=== PATIENT | female | born 1960 | race Hispanic/Latino ===

== ENCOUNTER 2017-12-02 19:41 | Emergency (ER) | payer OTHER ==
[~2017-12-02] VITALS: Ht 170.2 cm; Wt 107.0 kg
[2017-12-02 19:53] VITALS: BP 121/75
--- NOTE | 2017-12-02 20:29 | RADIOLOGY REPORT ---
EXAMINATION: CHEST 2 VIEWS CLINICAL INFORMATION: Cough, fever. COMPARISON: None. TECHNIQUE: PA and lateral views of the chest were obtained. FINDINGS: The cardiac silhouette is not enlarged. The mediastinal and hilar contours are unremarkable. There are neither pleural effusions nor pneumothoraces. There are no consolidations. The osseous structures are unremarkable. IMPRESSION: No evidence for acute disease.
--- NOTE | 2017-12-02 20:43 | ED INFLUENZA/URI COMPLAINT ---
History of Present Illness General Chief Complaint: General Adult Stated Complaint: MULTIPLE COMPLAINTS Source: patient, family, old records Exam Limitations: no limitations Vital Signs & Intake/Output Vital Signs & Intake/Output Vital Signs Date Time Temp Pulse Resp B/P B/P Pulse O2 O2 Flow FiO2 Mean Ox Delivery Rate 12/02 2113 96 12/02 1952 98.8 76 18 121/75 97 Room Air Allergies Coded Allergies: No Known Allergies (12/02/17) Reconcile Medications Albuterol Sulfate (Proair Hfa) 90 MCG HFA.AER.AD 2 PUF INH Q4-6 PRN PRN bronchitis Cholecalciferol (Vitamin D3) (Vitamin D) 2,000 UNIT CAPSULE 1 CAP PO DAILY SUPPLEMENT (Reported) Codeine Phosphate/Guaifenesi (Cheratussin AC Syrup) 10 MG-100 MG/5 ML LIQUID 5 -10 ML PO Q4-6H PRN cough Ibuprofen 600 MG TABLET 1 TAB PO Q6PRN PRN pain with food Lisinopril 20 MG TABLET 1 TAB PO DAILY BP (Reported) Oseltamivir Phosphate (Tamiflu) 75 MG CAPSULE 1 CAP PO BID influenza Oxymetazoline HCl (Afrin) 0.05 % SPRAY 2 SPRAY NASB BID sinusitis Pantoprazole Sodium 40 MG TABLET.DR 1 TAB PO DAILY GI (Reported) Triage Note: PT TO ER C/C FEVERS, PRODUCTIVE COUGH, AND CHEST CONGESTION X 3 DAYS. T-MAX AT HOME 102. TOOK TYLENOL AT 1600, TEMP NOW 98.8. FLU SWAB SENT FROM [facility] Triage Nurses Notes Reviewed? yes Onset: 2-3 days Duration: day(s):, constant, continues in ED Timing: recent history Severity: moderate Prior Episodes/Possible Cause: illness exposure No Modifying Factors: none Associated Symptoms: chest pain, cough, fever/chills, muscle aches, nasal congestion, nasal drainage, sore throat LMP (ages 10-50): post menopausal : No Patient currently breastfeeds: No HPI: 2 to 3 days prior to admission patient complains of productive cough nasal congestion fever chills myalgia anorexia chest tightness with cough. She denies nausea vomiting diarrhea abdominal pain shortness of breath dysuria rash bleeding. Past History Travel History Traveled to [place] past 21 day No Medical History Any Pertinent Medical History? see below for history Cardiovascular: hypertension Endocrine: diabetes Surgical History Surgical History: non-contributory Psychosocial History What is your primary language Maori Tobacco Use: Never used Family History Hx Contributory? No Review of Systems Review of Systems Constitutional: Reports: see HPI, chills, malaise. EENTM: Reports: see HPI, nasal congestion, throat pain. Respiratory: Reports: see HPI, cough, sputum production. Cardiovascular: Reports: see HPI, chest pain. GI: Reports: no symptoms. Genitourinary: Reports: no symptoms. Musculoskeletal: Reports: see HPI, muscle pain. Skin: Reports: no symptoms. Neurological/Psychological: Reports: no symptoms. Hematologic/Endocrine: Reports: no symptoms. Immunologic/Allergic: Reports: no symptoms. All Other Systems: Reviewed and Negative Physical Exam Physical Exam General Appearance: well developed/nourished, alert, awake, anxious, mild distress, obese Head: atraumatic, normal appearance, tenderness (Frontal maxillary) Eyes: Bilateral: normal appearance, PERRL, EOMI. Ears, Nose, Throat: normal ENT inspection, moist mucous membrane, pharyngeal erythema Neck: normal inspection, supple, full range of motion, trachea midline, lymphadenopathy (R), lymphadenopathy (L) Respiratory: chest non-tender, no respiratory distress, quiet respiration, lungs clear, decreased breath sounds Cardiovascular: regular rate/rhythm, normal peripheral pulses, norml femoral pulses equa Peripheral Pulses: 4+ carotid (R), 4+ carotid (L) Gastrointestinal: normal bowel sounds, soft, non-tender, no organomegaly Back: normal inspection, normal range of motion Extremities: normal inspection, normal capillary refill, normal range of motion, no edema Neurologic/Psych: no motor/sensory deficits, awake, alert, oriented x 3, normal gait, normal mood/affect, comptometrist II-XII nml as tested Reflexes: 2+: bicep (R), bicep (L). Skin: intact, normal color, warm/dry Lymphatic: adenopathy Core Measures Sepsis Present: No Sepsis Focused Exam Completed? No Progress Differential Diagnosis: influenza, pneumonia, pharyngitis, sinusitis Plan of Care: Orders Procedure Date/time Status RAPID VIRAL INFLUENZA A 12/02 1953 Complete Microbiology 12/02 1956 NASOPHARYN: Influenza Virus A & B Rapid Smear - COMP Diagnostic Imaging: Viewed by Me: Radiology Read. Discussed w/RAD: Radiology Read. CXR Impression: no acute abnormality, No evidence for acute disease. Initial ED EKG: none Departure Departure Time of Disposition: 2210 Disposition: HOME OR SELF CARE Condition: Stable Clinical Impression Primary Impression: Influenza Secondary Impressions: Bronchitis, Sinusitis Referrals: Chele Jesus MD (PCP/Family) Departure Forms: Customer Survey General Discharge Information Prescriptions: Current Visit Scripts Oseltamivir Phosphate (Tamiflu) 1 CAP PO BID #10 CAP Albuterol Sulfate (Proair Hfa) 2 PUF INH Q4-6 PRN PRN bronchitis #1 INHAL Codeine Phosphate/Guaifenesi (Cheratussin AC Syrup) 5-10 ML PO Q4-6H PRN cough #240 ML Oxymetazoline HCl (Afrin) 2 SPRAY NASB BID #30 ML Ibuprofen 1 TAB PO Q6PRN PRN pain #50 TAB with food
[2017-12-02] MEDS ORDERED: PANTOPRAZOLE SO40 M1 PO (20:45)
[2017-12-02] MEDS ORDERED: LISINOPRIL20 M1 PO (20:45)
[2017-12-02] MEDS ORDERED: VITAMIN D2000 UNIT PO (20:46)
[2017-12-02] MEDS ORDERED: AFRIN30 ML NASB (22:12)
[2017-12-02] MEDS ORDERED: PROAIR HFA8.5 GM INH (22:12)
[2017-12-02] MEDS ORDERED: TAMIFLU75 M1 PO (22:12)
[2017-12-02] MEDS ORDERED: IBUPROFEN600 M1 PO (22:12)
[2017-12-02] MEDS ORDERED: CHERATUSSIN AC118 M1 PO (22:12)
== END 2017-12-02 22:26 ==
LOC: ERH 19:41
DX: J11.1 Influenza due to unidentified influenza virus with other respiratory manifestations (principal); J40 Bronchitis, not specified as acute or chronic; J32.9 Chronic sinusitis, unspecified; F17.210 Nicotine dependence, cigarettes, uncomplicated
CPT/HCPCS: 1263; 71046; 87804; 87804-59

== ENCOUNTER 2018-03-23 12:52 | Observation (INO) | payer OTHER ==
[~2018-03-23] VITALS: Ht 170.2 cm; Wt 106.6 kg
[~2018-03-23 12:52] MED LIST: AFRIN30 ML NASB; CHERATUSSIN AC118 M1 PO; IBUPROFEN600 M1 PO; LISINOPRIL20 M1 PO; PANTOPRAZOLE SO40 M1 PO; PROAIR HFA8.5 GM INH; TAMIFLU75 M1 PO; VITAMIN D2000 UNIT PO
[2018-03-23 13:32] LABS: ABSOLUTE BASOPHIL COUNT 0 /CUMM (0.0-0.2); ABSOLUTE EOSINOPHIL COUNT 0.1 /CUMM (0.0-0.7); ABSOLUTE LYMPH COUNT 2.2 /CUMM (1.2-3.4); ABSOLUTE MONOCYTE COUNT 0.4 /CUMM (0.10-0.60); MEAN PLATELET VOLUME 8.3 FL (7.4-10.4)
[2018-03-23 13:40] LABS: BASOPHIL % 0.4 % (0.0-2.0); EOSINOPHIL % 1.7 % (0-5); GRANULOCYTE % 59.2 % (42.2-75.2); HEMATOCRIT 41.8 % (37-47); MEAN CORPUSCULAR HGB 29.6 PG (27.0-31.0); MEAN CORPUSCULAR HGB CONC 33.3 G/DL (33.0-37.0); MEAN CORPUSCULAR VOLUME 88.9 FL (81.0-99.0); PLATELET COUNT 295 /CUMM (130-400); RBC DISTRIBUTION WIDTH 12.7 % (11.5-14.5); WHITE BLOOD CELL COUNT 6.8 /CUMM (4.8-10.8)
--- NOTE | 2018-03-23 13:43 | ED CARDIAC/CP/PALPITATIONS ---
History of Present Illness General Chief Complaint: Chest Pain Stated Complaint: CHEST PAIN Source: patient Exam Limitations: language barrier Vital Signs & Intake/Output Vital Signs & Intake/Output Vital Signs Date Time Temp Pulse Resp B/P B/P Pulse O2 O2 Flow FiO2 Mean Ox Delivery Rate 03/23 1623 97.1 52 18 122/84 97 Room Air 03/23 1433 50 18 110/60 99 Room Air 03/23 1302 96.2 60 20 142/82 97 Room Air Allergies Coded Allergies: No Known Allergies (12/02/17) Triage Note: PT TO ED C/O HIGH BP AT HOME THIS AM. STATES IT WAS FLUCTUATING UP AND DOWN. C/O H/A, LEFT ARM TINGLING AND SLIGHT C/P. BP 142/82 IN TRIAGE. Triage Nurses Notes Reviewed? yes Onset: Abrupt Duration: hour(s): (930 am) Timing: recent history Activities at Onset: none HPI: 57-year-old female comes into emergency room for further evaluation of left- sided chest pain and tingling down her left arm. She's had some associated shortness of breath. She denies any fever chills or vomiting. She reports that she sees Dr. Snow from cardiology. She has a history of hypertension. Denies any prior HI. Denies any other associated symptoms. (Caleb Mcclain) Reconcile Medications Aspirin (Aspirin*) 81 MG TAB.CHEW 81 MG PO DAILY Heart health . Lisinopril 20 MG TABLET 1 TAB PO DAILY BP (Reported) Omeprazole 20 MG CAPSULE.DR 1 CAP PO DAILY GERD . (Becki MAYBERRY,Gopi Hameed) Past History Travel History Traveled to [place] past 21 day No Medical History Any Pertinent Medical History? see below for history Cardiovascular: hypertension Endocrine: diabetes Surgical History Surgical History: non-contributory Psychosocial History What is your primary language Lao Tobacco Use: Never used ETOH Use: denies use Illicit Drug Use: denies illicit drug use Family History Hx Contributory? No (Caleb Mcclain) Review of Systems Review of Systems Constitutional: Reports: no symptoms. EENTM: Reports: no symptoms. Respiratory: Reports: see HPI. Cardiovascular: Reports: see HPI. GI: Reports: no symptoms. Genitourinary: Reports: no symptoms. Musculoskeletal: Reports: see HPI. Skin: Reports: no symptoms. Neurological/Psychological: Reports: no symptoms. Hematologic/Endocrine: Reports: no symptoms. Immunologic/Allergic: Reports: no symptoms. All Other Systems: Reviewed and Negative (Caleb Mcclain) Physical Exam Physical Exam General Appearance: well developed/nourished, alert, awake Head: atraumatic Eyes: Bilateral: normal appearance. Ears, Nose, Throat: normal ENT inspection, hearing grossly normal Neck: normal inspection Respiratory: normal breath sounds, no respiratory distress Cardiovascular: regular rate/rhythm Gastrointestinal: soft Back: normal inspection Extremities: normal inspection, normal capillary refill, no edema Neurologic/Psych: awake, alert, oriented x 3 Skin: intact, normal color Core Measures ACS in differential dx? Yes CVA/TIA Diagnosis No Sepsis Present: No Sepsis Focused Exam Completed? No (Caleb Mcclain) Progress Differential Diagnosis: aortic dissection, costochondritis, musculoskeletal pain , myocarditis, pancreatitis, pericarditis, pneumonia, pneumothorax, pulmonary embolism, PUD/GERD, rib fracture, unstable angina Plan of Care: Orders Procedure Date/time Status Heart Healthy Diet 03/[address] in observation 03/23 1713 Active TROPONIN LEVEL 03/23 1630 Complete EKG 03/23 1630 Active Add-on Test (ER Only) 03/23 1343 Active Telemetry/Playground Equipment Erector 03/23 1343 Active D-DIMER 03/23 1326 Complete TROPONIN LEVEL 03/23 1300 Complete COMPREHENSIVE METABOLIC PANEL 03/23 1300 Complete CBC WITHOUT DIFFERENTIAL 03/23 1300 Complete EKG 03/23 1253 Active Laboratory Tests 03/23/18 1641: Troponin I < 0.01 03/23/18 1326: Anion Gap 12, Estimated GFR > 60, BUN/Creatinine Ratio 18.3, Glucose 92, Calcium 9.9, Total Bilirubin 0.7, AST 23, ALT 39, Alkaline Phosphatase 88, Troponin I < 0.01, Total Protein 7.4, Albumin 4.2, Globulin 3.2, Albumin/Globulin Ratio 1.3, D-Dimer High Sensitivty < 200, CBC w Diff NO MAN DIFF REQ, RBC 4.70, MCV 88.9, MCH 29.6, MCHC 33.3, RDW 12.7, MPV 8.3, Gran % 59.2, Lymphocytes % 32.5, Monocytes % 6.2, Eosinophils % 1.7, Basophils % 0.4, Absolute Granulocytes 4.0, Absolute Lymphocytes 2.2, Absolute Monocytes 0.4, Absolute Eosinophils 0.1, Absolute Basophils 0 Diagnostic Imaging: Viewed by Me: Radiology Read. Discussed w/RAD: Radiology Read. Radiology Impression: PATIENT: EMELY CONTRERAS PRESENT AGE: 57 PATIENT ACCOUNT NO: [id number] : 60 LOCATION: [facility] ORDERING PHYSICIAN: Caleb BRADLEY SERVICE DATE: 03/23/18 EXAM TYPE : RAD - XRY-PORTABLE CHEST XRAY EXAMINATION: XR PORTABLE CHEST CLINICAL INFORMATION: Chest pain. COMPARISON: Chest x-ray 12/02/2017. TECHNIQUE: Portable frontal view of the chest was obtained. FINDINGS: The cardiomediastinal silhouette is within normal limits. The lungs are well expanded and clear. No consolidation or effusion. No pneumothorax. IMPRESSION: No acute findings. Stable chest x-ray compared to 12/02/2017. DICTATED BY: Michael Sanabria MD DATE/ TIME DICTATED:03/23/181438 ORNAMENT STAPLER:SUSANNAH DATE/TIME TRANSCRIBED: 03/23/181438 CONFIDENTIAL, DO NOT COPY WITHOUT APPROPRIATE AUTHORIZATION. < Electronically signed in Other Vendor System> SIGNED BY: Michael Sanabria MD 03/23/18 1444 Initial ED EKG: normal sinus rhythm, rate (50) (Caleb Mcclain) Departure Departure Disposition: STILL A PATIENT Condition: Stable Clinical Impression Primary Impression: Chest pain with moderate risk for cardiac etiology Referrals: Chele Jesus MD (PCP/Family) Departure Forms: Customer Survey General Discharge Information Observation Note Spoke With: Eddie Wang MD Physician Advisor Notified: ROSMERY MAYBERRY,WAYLON [address] Patient In: Non-ED OBS Care Area Rationale for Observation: My rational for observation is as follows . Cardiac telemetry. Serial troponins. Serial EKGs. Chest pain improved after supplemental nitroglycerin. Cardiology consultation. Concern for angina. (Caleb Mcclain) Departure Prescriptions: Current Visit Scripts Omeprazole 1 CAP PO DAILY #30 CAP . Aspirin (Aspirin*) 81 MG PO DAILY #30 TAB . PA/CLOTH LAYER Co-Sign Statement Statement: ED Attending supervision documentation- [] I saw and evaluated the patient. I have also reviewed all the pertinent lab results and diagnostic results. I agree with the findings and the plan of care as documented in the PA's/CLOTH LAYER's documentation. [] I have reviewed the ED Record and agree with the PA's/CLOTH LAYER's documentation. [] Additions or exceptions (if any) to the PAs/CLOTH LAYER's note and plan are summarized below: [] (Becki MAYBERRY,Gopi Hameed) Critical Care Note Critical Care Note Critical Care Time: non-applicable (Parrish BRADLEY,Caleb)
--- NOTE | 2018-03-23 14:44 | RADIOLOGY REPORT ---
EXAMINATION: XR PORTABLE CHEST CLINICAL INFORMATION: Chest pain. COMPARISON: Chest x-ray 12/02/2017. TECHNIQUE: Portable frontal view of the chest was obtained. FINDINGS: The cardiomediastinal silhouette is within normal limits. The lungs are well expanded and clear. No consolidation or effusion. No pneumothorax. IMPRESSION: No acute findings. Stable chest x-ray compared to 12/02/2017.
--- NOTE | 2018-03-23 17:50 | History & Physical ---
Jonathan Soto MD 03/23/18 8219: General Information and HPI MD Statement: I have seen and personally examined EMELY FLOWERS and documented this H&P. The patient is a 57 year old F who presented with a patient stated chief complaint of [chest pain]. Source of Information: patient, family Exam Limitations: no limitations History of Present Illness: Patient is a 57-year-old female with a PMH significant only for hypertension who presents to the [facility] ED complaining of chest pain. She describes chest pain as a pressure-like pain 06/08 that started this morning walking breakfast at approximately 9:30 AM. She was not exerting herself at the time, the pain is located in the left side of the chest just lateral to the sternum and radiated to the left side of the neck. The pain did not resolve until she presented to the ED and received nitroglycerin and a full dose aspirin. She had associated dyspnea, palpitations, diaphoresis, lightheadedness , and left arm tingling. She has a BP machine at home and checked her blood pressure at that time and it was in the 160s/90s. At the time of interview patient's symptoms had completely resolved and she had no complaints. Review of systems she reports that over the last several days she has had generalized malaise with intermittent dizziness. She also reports that she has difficulty sleeping and sometimes wakes up gasping for breath snores loudly, she is following up with Dr. Ma for questionable JONEL. Patient also follows with Dr. Snow for her hypertension, per the patient she had a recent stress test done which was normal. Allergies/Medications Allergies: Coded Allergies: No Known Allergies (12/02/17) Home Med list Aspirin (Aspirin*) 81 MG TAB.CHEW 81 MG PO DAILY Heart health . Lisinopril 20 MG TABLET 1 TAB PO DAILY BP (Reported) Omeprazole 20 MG CAPSULE. 1 CAP PO DAILY GERD . Past History Travel History Traveled to [place] past 21 day No Medical History Cardiovascular: hypertension Surgical History Surgical History: appendectomy, hysterectomy Past Family/Social History Family History Relations & Conditions if any Relation not specified for: FH: HTN (hypertension) Psychosocial History Where do you live? Home Who Do You Live With? child Services at Home: None Primary Language: Azerbaijani Smoking Status: Never Smoked ETOH Use: denies use Illicit Drug Use: denies illicit drug use Living Will? yes Review of Systems Review of Systems Constitutional: Reports: diaphoresis, malaise. Denies: chills, fever. EENTM: Reports: no symptoms. Cardiovascular: Reports: chest pain, palpitations. Denies: peripheral edema, syncope. Respiratory: Denies: cough, short of breath. GI: Reports: no symptoms. Genitourinary: Reports: no symptoms. Musculoskeletal: Reports: no symptoms. Skin: Reports: no symptoms. Neurological/Psychological: Reports: tingling (L arm). Hematologic/Endocrine: Reports: no symptoms. Exam & Diagnostic Data Last 24 Hrs of Vital Signs/I&O Vital Signs Date Time Temp Pulse Resp B/P B/P Pulse O2 O2 Flow FiO2 Mean Ox Delivery Rate 03/23 1623 97.1 52 18 122/84 97 Room Air 03/23 1433 50 18 110/60 99 Room Air 03/23 1302 96.2 60 20 142/82 97 Room Air Intake & Output 03/23 1600 03/23 0800 03/23 0000 Intake Total 0 Output Total Balance 0 Intake, Oral 0 Patient 228 lb Weight Weight Estimated Measurement Method Physical Exam General Appearance Alert, Oriented X3, Cooperative, No Acute Distress Skin Temp/Moisture Exam: Warm/Dry Neck No JVD, hepatojugular reflux Cardiovascular Regular Rate, Normal S1, Normal S2, No Murmurs Lungs Clear to Auscultation, Normal Air Movement Abdomen Normal Bowel Sounds, Soft, No Tenderness Neurological Normal Speech, Strength at 5/5 X4 Ext, Normal Tone, Sensation Intact, Cranial Nerves 3-12 NL Extremities No Clubbing, No Cyanosis, No Edema Last 24 Hrs of Labs/Ceferino: Laboratory Tests 03/23/18 1641: Troponin I < 0.01 03/23/18 1326: Anion Gap 12, Estimated GFR > 60, BUN/Creatinine Ratio 18.3, Glucose 92, Hemoglobin A1c Pending, Calcium 9.9, Total Bilirubin 0.7, AST 23, ALT 39, Alkaline Phosphatase 88, Troponin I < 0.01, Total Protein 7.4, Albumin 4.2, Globulin 3.2, Albumin/Globulin Ratio 1.3, Triglycerides 105, Cholesterol 192, LDL Cholesterol, Calc 125, HDL Cholesterol 46, Cholesterol/HDL Ratio 4, D-Dimer High Sensitivty < 200, CBC w Diff NO MAN DIFF REQ, RBC 4.70, MCV 88.9, MCH 29.6, MCHC 33.3, RDW 12.7, MPV 8.3, Gran % 59.2, Lymphocytes % 32.5, Monocytes % 6.2, Eosinophils % 1.7, Basophils % 0.4, Absolute Granulocytes 4.0, Absolute Lymphocytes 2.2, Absolute Monocytes 0.4, Absolute Eosinophils 0.1, Absolute Basophils 0 Diagnostic Data EKG Results sinus bradycardia, HR 46, QTc 406, no ST-T changes, but no old ekg for comparison CXR Results no acute cardiopulmonary pathology Assessment/Plan Assessment: Patient is a 57-year-old female with a PMH significant only for hypertension who presents to the [facility] ED complaining of chest pain. In the ED patient received nitroglycerin and aspirin which resolved her symptoms. Her vital signs and lab work evident within normal limits, her EKG showed sinus bradycardia. Problem list #Chest pain rule out ACS #Hypertension Plan -Observe on telemetry -Continuous telemetry monitoring - Repeat troponin and EKG to rule out ACS -Nitroglycerin when necessary for chest pain -Start statin -Continue aspirin -If recurrence of chest pain started IV heparin -Case discussed with patient's dairy farmworker, Dr. Snow. Will follow cardiology recommendations -Continue lisinopril for hypertension Diet: Heart healthy DVT prophylaxis: Subcutaneous heparin, Alps CODE STATUS: Full code As Ranked By This Provider Problem List: 1. Chest pain with moderate risk for cardiac etiology Core Measures/Misc (08/16) Acute Coronary Syndrome ACS Diagnosis: No Congestive Heart Failure Congestive Heart Failure Diagnosis No Cerebrovascular Accident CVA/TIA Diagnosis: No VTE (View Protocol) VTE Risk Factors Age>40 No Mechanical VTE Prophylaxis d/t N/A MechProphylax Ordered No VTE Pharm Prophylaxis d/t NA PharmProphylax ordered Sepsis (View protocol) Sepsis Present: No Kota MAYBERRY,Lisa 03/23/18 2686: Resident Review Statement Other Findings: Ms Flowers is a pleasant 57 year old female with past medical hisory of hypertension and GERD who presented to the ED on 03/27/2018 complaining of feeling dizzy. The patient states that for the last four days prior to admission , she has been feeling off her baseline noting that her BP has been fluctuating up and down. She has a BP machine at home and checks her blood pressure frequently. She states she slept well last evening and woke up at approximately 7.00 am. Shortly thereafter, as she was making breakfast she noted some tingling in her left upper extremity. This radiated up towards her neck. This was accompanied with chest pain/discomfort, rated at a 7/10 in severity and described as dull. Pain radiated up to her neck. She checked her BP which at this time which was fluctuating from 155-160 systolic and 90-95 diastolic. Her daughter insisted that she should come to the ED. Prior to coming in she denied any fever, chills, nausea or vomiting. She did endorse some chest palpitations. At the time of our clinical interaction, she was chest pain free and comfortable. She was accompanies by her three children. Last year she saw Dr Snow for a stress test which the patient reports was inconclusive for any pathology. Patient PCP is Dr Roseanna Jesus Patient Motion Picture Projectionist: Dr Ma ROS: As Above. Exam: T: 96.2, NE 60, RR 20 BP 142/82, Sat 97% on RA. General Appearance: well developed/nourished, alert, awake Head: atraumatic Eyes: Bilateral: normal appearance. PERRL Ears, Nose, Throat: normal ENT inspection, hearing grossly normal Neck: normal inspection Respiratory: normal breath sounds, no respiratory distress Cardiovascular: regular rate/rhythm Gastrointestinal: soft, no tenderness, Back: normal inspection Extremities: normal inspection, normal capillary refill, no edema Neurologic/Psych: awake, alert, oriented x 3 Skin: intact, normal color Labs As Above. Initial two troponins WNL Imaging: SERVICE DATE: 03/23/18 EXAM TYPE: RAD - XRY-PORTABLE CHEST XRAY EXAMINATION: XR PORTABLE CHEST CLINICAL INFORMATION: Chest pain. COMPARISON: Chest x-ray 12/02/2017. TECHNIQUE: Portable frontal view of the chest was obtained. FINDINGS: The cardiomediastinal silhouette is within normal limits. The lungs are well expanded and clear. No consolidation or effusion. No pneumothorax. IMPRESSION: No acute findings. Stable chest x-ray compared to 12/02/2017. DICTATED BY: Michael Sanabria MD A/P Ms Flowers is a pleasant 57 year old female with past medical hisory of hypertension and GERD who presented to the ED on 03/27/2018 complaining of feeling dizzy and experiencing chest discomfort. #Atypical Chest Pain and discomfort, Rule out ACS #Hypertensive Urgency Place in Observation intelemetry One more set of troponins. If patient endorses chest pain, being IV heparin and Nirtoglycerin Obtain formal cardiology consultation. Defer to cardiology regarding echocardiogram HBA1c and Lipid Panel Continue home medications, if pressure continues to be elevated, may consider the addition of aother antihypertensive. The patient has been on a PPI previously, this may help with her symptoms. May also consider beginning Aspirin DVT PPX Lovenox Heart Healthy Full Code Delvin Oconnor 03/23/186: Attending MD Review Statement Attending Statement Attending MD Statement: examined this patient, discuss w/resident/PA/UNIT ASSISTANT, agreed w/resident/PA/UNIT ASSISTANT, discussed with family, reviewed EMR data (avail), reviewed images, amended to note Attending Assessment/Plan: CC: Chest pain PMH: HTN Patient came to ER for left-sided chest pain/pressure that started approximately 9:30 AM when she was preparing breakfast, it was substernal and left parasternal , radiating to left side of the neck, present at rest, associated with shortness of breath, diaphoresis and lightheadedness but not actual syncope, no aggravating or relieving factors. As the pain was not improving her daughter brought her to ER. Her pain improved after sublingual nitroglycerin. No repeat episode of pain in the ER. Patient denies any cough or expectoration, pleuritic nature of the pain, abdominal pain, burning sensation in abdomen or chest, vision problems. Patient gets short of breath after climbing one flight of steps , or walking her dog around but denies any leg swellings, follows up with dairy farmworker regularly, recent stress test 2 months back was normal. Vitals: Afebrile, pulse 60, RR 20, blood pressure 142/82, saturating 96% on room air On exam: A O 3, cooperative, no acute distress, neck supple, JVD normal, no lymphadenopathy, mucosa moist, no focal neurological deficit, no dependent edema , no obvious skin rashes or inflammation CVS: S1-S2, RRR, soft left parasternal systolic murmur. RS: Clear to auscultate bilaterally. Abdomen: Soft, NT, ND, bowel sounds present. CXR: No acute cardiopulmonary process Assessment and plan 57-year-old female with past medical history significant for hypertension presented in ER for chest pain, left-sided, happened at rest, radiating to left side of neck associated with the diaphoresis and lightheadedness with mild shortness of breath. All symptoms resolved after sublingual nitroglycerin. Examination unremarkable except soft left parasternal systolic murmur. ECG is unremarkable except heart rate 60, troponin less than 0.012. Patient would benefit from observation on telemetry to rule out ACS + Atypical chest pain + History of HTN - Place in observation on telemetry - Continuous telemetry monitoring - Serial troponin and EKGs - 2-D echo in a.m. if significant increase in troponin - Cardiology consult in a.m. - Continue aspirin 81 mg daily, - Check lipid profile - Continue home doses of lisinopril
[2018-03-23 19:49] VITALS: BP 148/80
[2018-03-23 22:05] VITALS: BP 138/82
[2018-03-24 06:38] VITALS: BP 132/78
--- NOTE | 2018-03-24 07:28 | PN-Observation ---
Charles MAYBERRY,Jonathan 03/24/18 0728: Observation Note Observation Note _ I have personally examined EMELY CONTRERAS. her disposition is uncertain at this time. Before a determination can be made, she requires continued observation for the following reasons [chest pain]. Assessment/Plan Medical Problem List: 1. Chest pain with moderate risk for cardiac etiology Plan: Patient is a 57-year-old female with a PMH significant only for hypertension who presents to the [facility] ED complaining of chest pain. In the ED patient received nitroglycerin and aspirin which resolved her symptoms. Her vital signs and lab work evident within normal limits, her EKG showed sinus bradycardia. Problem list #Chest pain rule out ACS - lipid panel is within normal limits - continue telemetry monitoring - patient has had asymptomatic bradycardia - serial troponin negative and EKGs without ST-T changes - nitroglycerin PRN - aspirin 81 mg daily - will follow-up cardiology recommendations - anticipate DC home today #Hypertension - continue home lisinopril Diet: Heart healthy DVT prophylaxis: Subcutaneous heparin, Alps CODE STATUS: Full code Subjective Follow-up For: Chest pain, now resolved Tele-Events Since Last Visit: SR HR 40s-50s Subjective: Patient was seen and examined at bedside. She was resting comfortably. She had no acute events overnight. She had no recurrences of her chest pain and feels back to baseline today. She is able to ambulate to the restroom with no shortness breath, or chest pain. She denies any palpitations, nausea, vomiting, fever, chills. Review of Systems Constitutional: Denies: chills, fever. EENTM: Reports: no symptoms. Cardiovascular: Denies: chest pain, palpitations. Respiratory: Denies: short of breath. Gastrointestinal: Reports: no symptoms. Genitourinary: Reports: no symptoms. Musculoskeletal: Reports: no symptoms. Skin: Reports: no symptoms. Objective Last 24 Hrs of Vital Signs/I&O Vital Signs Date Time Temp Pulse Resp B/P B/P Pulse O2 O2 Flow FiO2 Mean Ox Delivery Rate 03/24 0638 98.2 54 20 132/78 94 Room Air 03/23 2205 98.2 56 20 138/82 95 03/23 1949 98.5 55 22 148/80 96 Room Air 03/23 1623 97.1 52 18 122/84 97 Room Air 03/23 1433 50 18 110/60 99 Room Air 03/23 1302 96.2 60 20 142/82 97 Room Air Intake & Output 03/24 0800 03/24 0000 03/23 1600 Intake Total 480 480 0 Output Total Balance 480 480 0 Intake, Oral 480 480 0 Patient 235 lb 228 lb Weight Weight Estimated Measurement Method Physical Exam General Appearance: Alert, Oriented X3, Cooperative, No Acute Distress Sepsis Skin Exam (color): Normal for Ethnicity Cardiovascular: Regular Rate, Normal S1, Normal S2 Lungs: Clear to Auscultation, Normal Air Movement Abdomen: Normal Bowel Sounds, Soft, No Tenderness Neurological: Normal Speech, Normal Tone, Sensation Intact Current Medications: Current Medications Sig/Pattie Start time Last Medication Dose Route Stop Time Status Admin Acetaminophen 1,000 MG Q6P PRN 03/23 2300 AC N/A 1 UNIT IV Acetaminophen 325 MG Q6P PRN 03/23 2030 AC PO Acetaminophen 650 MG ONCE ONE 03/23 2015 DC 03/23 PO 03/23 Aspirin 0 .STK-MED ONE 03/23 1354 DC PO Aspirin 325 MG ONCE ONE 03/23 1345 DC 03/23 PO 03/23 1346 1404 Enoxaparin Sodium 40 MG DAILY 03/23 1813 AC SC Lisinopril 20 MG DAILY 03/24 0900 AC PO Nitroglycerin 0.4 MG Q 5 MINUTES X 3 DO.. 03/23 1930 AC SL Nitroglycerin 0 .STK-MED ONE 03/23 1354 DC SL Nitroglycerin 0.4 MG ONCE ONE 03/23 1345 DC 03/23 SL 03/23 1346 1419 Last 24 Hrs of Labs/Mics: Laboratory Tests 03/23/18 2235: Troponin I < 0.01 03/23/18 1641: Troponin I < 0.01 Tosha MAYBERRY,Amado 03/24/18 1015: Observation Note Observation Note _ Patient seen and examined. Plan of care discussed with the medical team and the patient. Available lab work and radiology test reports were reviewed. Patient is comfortable and her vital signs stable. She continues to have mild the left anterior chest pain. No tenderness noted. Pain does not get exacerbated by moving left shoulder were activities of left pectoralis major. Exam: General: Patient awake alert oriented without any distress CVS: S1 plus S2 without any murmur or gallops Chest: Few scattered crepitation without any wheeze. There is no respiratory distress. Abdomen: Soft non-tender, bowel sound present, no guarding or rebound FURNISHINGS CONSERVATOR: Awake alert oriented without any focal neuro deficit and follows commands appropriately Extremities: No edema; no clubbing or cyanosis noted Troponins have been negative and chest x-ray yesterday did not show any acute findings. Assessment plan Atypical chest pain- patient had a stress test 2 months ago which apparently was negative. Pain appears to be typical and not consistent with typical anginal pain. Plans discharge patient home. She will follow with the PCP. Discussed with patient's daughter was in the room. Patient currently stable for discharge. We'll start a trial of Prilosec for 4 weeks upon discharge.
[2018-03-24 08:52] VITALS: BP 132/78
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
[2018-03-24] MEDS ORDERED: ASPIRIN81 M4 PO ×2 (09:44→11:45)
--- NOTE | 2018-03-24 09:46 | Patient Discharge Instructions ---
Discharge Instructions General Discharge Information You were seen/treated for: Chest pain Special Instructions: Follow-up with your primary care doctor within 1 week of discharge. Follow-up with Dr. Snow within 1 week of discharge. Follow-up with Dr. Ma as previously scheduled. Call your doctor or return to the ER if you should have worsening chest pain, shortness of breath, Acute Coronary Syndrome Inclusion Criteria At DC or during hospital stay patient has or had the following: ACS DIAGNOSIS No Discharge Core Measures Meds if any: Prescribed or Continued at Discharge Meds if any: NOT Prescribed or Continued at Discharge Congestive Heart Failure Inclusion Criteria At DC or during hospital stay patient has or had the following: CHF DIAGNOSIS No Discharge Core Measures Meds if any: Prescribed or Continued at Discharge Meds if any: NOT Prescribed or Continued at Discharge Cerebrovascular accident Inclusion Criteria At DC or during hospital stay patient has or had the following: CVA/TIA Diagnosis No Discharge Core Measures Meds if any: Prescribed or Continued at Discharge Meds if any: NOT Prescribed or Continued at Discharge Venous thromboembolism Inclusion Criteria VTE Diagnosis No VTE Type NONE VTE Confirmed by (Test) NONE Discharge Core Measures - Per Current guidelines, there needs to be overlap - treatment for the first 5 days of Warfarin therapy. - If discharged on Warfarin prior to 5 days of - overlap therapy, the patient will need to be - assessed for post discharge needs including - *Post discharge parental anticoagulation - *Warfarin and/or parental anticoagulation education - *Follow up date to check INR post discharge At least 5 days overlap therapy as Inpatient No Meds if any: Prescribed or Continued at Discharge Note: Overlap Therapy is Warfarin and Anticoagulant Meds if any: NOT Prescribed or Continued at Discharge
[2018-03-24] MEDS ORDERED: OMEPRAZOLE20 M2 PO ×2 (11:28→11:45)
== END 2018-03-24 13:00 ==
LOC: ERH 12:52 → 1NO 17:13 → ERHI 17:13 → 1NO 17:13 → ENRESERV 18:18 → ENTRNSPT 19:20 → 1NO 19:29 → EDTRNSPT 19:29 → EDTRNSPTSTS 19:29 → CMPTRNSPT 19:45 → 1NO 03-24 07:35 → ENPENDDIS 03-24 11:46 → 1NO 03-24 13:00
PROVIDERS: Physician Assistant Medical
DX: R07.89 Other chest pain (principal); I16.0 Hypertensive urgency; K21.9 Gastro-esophageal reflux disease without esophagitis; Z79.82 Long term (current) use of aspirin; R00.2 Palpitations; Z79.899 Other long term (current) drug therapy
CPT/HCPCS: 6020; 36415; 71045; 93005; 93010; G0378; J0131; J1650; J3490